=== PATIENT | female | born 1980 | race African-American/Black ===

== ENCOUNTER 2021-02-04 21:36 | Emergency (ER) | payer MEDICAID, OTHER ==
[~2021-02-04] VITALS: Ht 162.6 cm; Wt 114.0 kg
[2021-02-04 21:54] VITALS: BP 144/81
[2021-02-04] MEDS ORDERED: IBUPROFEN 800MG TABLET PO ONE (22:15)
[2021-02-04] MEDS ORDERED: IBUP-2030 MT (22:47)
== END 2021-02-04 23:30 | disposition home or self-care (01) ==
LOC: ER 21:36
DX: M79.642 Pain in left hand (principal); R03.0 Elevated blood-pressure reading, without diagnosis of hypertension; J45.909 Unspecified asthma, uncomplicated
CPT/HCPCS: 73130; 81025; 99283

== ENCOUNTER 2021-08-09 19:15 | Emergency (ER) | payer OTHER ==
[~2021-08-09] VITALS: Ht 162.6 cm; Wt 135.1 kg
[~2021-08-09 19:15] MED LIST: IBUP-2030 MT
[2021-08-09] MEDS ORDERED: ALBU6.7H9 INH (23:15)
[2021-08-09 23:44] VITALS: BP 145/80
== END 2021-08-09 23:46 | disposition home or self-care (01) ==
LOC: ER 19:15
DX: M79.605 Pain in left leg (principal); Z76.0 Encounter for issue of repeat prescription; J45.909 Unspecified asthma, uncomplicated
CPT/HCPCS: 93971; 99284

== ENCOUNTER 2021-11-29 15:07 | Emergency (ER) | payer OTHER ==
[~2021-11-29] VITALS: Ht 162.6 cm; Wt 136.0 kg
[~2021-11-29 15:07] MED LIST changes: +ALBU6.7H9 INH
[2021-11-29] MEDS ORDERED: ALBU6.7H9 INH (16:49)
[2021-11-29 17:02] VITALS: BP 150/90
== END 2021-11-29 17:03 | disposition home or self-care (01) ==
LOC: ER 15:36
DX: B34.9 Viral infection, unspecified (principal); I10 Essential (primary) hypertension
CPT/HCPCS: 99283

== ENCOUNTER 2022-01-06 11:31 | Emergency (ER) | payer MEDICAID, OTHER ==
[~2022-01-06] VITALS: Ht 162.6 cm; Wt 136.5 kg
[2022-01-06 11:37] VITALS: BP 143/83
[2022-01-06] MEDS ORDERED: IPRATROPIUM BROMIDE (0.02%) 0.5MG/2.5ML NEB HHN ONE (14:45)
[2022-01-06] MEDS ORDERED: ALBUTEROL (0.083%) 2.5MG/3ML NEB HHN ONE (14:45)
[2022-01-06] MEDS ORDERED: ALBU6.7H9 INH (16:00)
[2022-01-06] MEDS ORDERED: MONT10TA21 MT (16:00)
== END 2022-01-06 16:10 | disposition home or self-care (01) ==
LOC: ER 11:31
DX: J45.901 Unspecified asthma with (acute) exacerbation (principal); R03.0 Elevated blood-pressure reading, without diagnosis of hypertension
CPT/HCPCS: 94640; 99283; Z7610

== ENCOUNTER 2022-02-21 12:24 | Emergency (ER) | payer MEDICAID ==
[~2022-02-21] VITALS: Ht 162.6 cm; Wt 136.5 kg
[~2022-02-21 12:24] MED LIST changes: +ALBU6.7H3 INH; -ALBU6.7H9 INH; +MONT10TA21 MT
[2022-02-21 12:54] VITALS: BP 152/99
[2022-02-21] MEDS ORDERED: PREDNISONE 20MG TABLET PO STA (14:28)
[2022-02-21] MEDS ORDERED: IPRATROPIUM BROMIDE (0.02%) 0.5MG/2.5ML NEB HHN STA (14:28)
[2022-02-21] MEDS ORDERED: ALBUTEROL (0.083%) 2.5MG/3ML NEB HHN STA (14:28)
[2022-02-21] MEDS ORDERED: P20 MT (16:00)
[2022-02-21] MEDS ORDERED: ALBU6.7H3 INH (16:00)
== END 2022-02-21 16:29 | disposition home or self-care (01) ==
LOC: ER 12:24
DX: J45.901 Unspecified asthma with (acute) exacerbation (principal); I10 Essential (primary) hypertension
CPT/HCPCS: 71045; 94640; 99283; J7512; Z7610

== ENCOUNTER 2022-03-30 06:24 | Emergency (ER) | payer MEDICAID ==
[~2022-03-30] VITALS: Ht 162.6 cm; Wt 136.0 kg
[~2022-03-30 06:24] MED LIST changes: +P20 MT
[2022-03-30] MEDS ORDERED: PREDNISONE 20MG TABLET PO STA (06:54)
[2022-03-30] MEDS ORDERED: IPRATROPIUM BROMIDE (0.02%) 0.5MG/2.5ML NEB HHN STA (06:54)
[2022-03-30] MEDS ORDERED: ALBUTEROL (0.083%) 2.5MG/3ML NEB HHN STA (06:54)
[2022-03-30] MEDS ORDERED: ALBU6.7H3 INH (08:11)
[2022-03-30] MEDS ORDERED: P50 PO (08:11)
[2022-03-30 08:33] VITALS: BP 150/90
== END 2022-03-30 09:10 | disposition home or self-care (01) ==
LOC: ER 06:24
DX: J45.901 Unspecified asthma with (acute) exacerbation (principal); I10 Essential (primary) hypertension; Z79.899 Other long term (current) drug therapy; Z79.51 Long term (current) use of inhaled steroids
CPT/HCPCS: 94640; 99283; J7512; Z7610

== ENCOUNTER 2022-08-05 19:26 | Emergency (ER) | payer MEDICAID, OTHER ==
[~2022-08-05] VITALS: Ht 162.6 cm; Wt 136.0 kg
[~2022-08-05 19:26] MED LIST changes: +MONT-46 MT; -MONT10TA21 MT; +P50 PO
[2022-08-05] MEDS ORDERED: IBUP-2028 MT (23:49)
[2022-08-05] MEDS ORDERED: HYDR-4001 MT (23:49)
[2022-08-06] MEDS ORDERED: HYDROCODONE/ACETAMINOPHEN 5/325MG TABLET PO NR
[2022-08-06 00:23] VITALS: BP 133/91
== END 2022-08-06 00:59 | disposition home or self-care (01) ==
LOC: ER 19:26
DX: S92.352A Displaced fracture of fifth metatarsal bone, left foot, initial encounter for closed fracture (principal); S93.402A Sprain of unspecified ligament of left ankle, initial encounter; X58.XXXA Exposure to other specified factors, initial encounter; Y93.89 Activity, other specified; Y92.89 Other specified places as the place of occurrence of the external cause; Y99.8 Other external cause status; J45.909 Unspecified asthma, uncomplicated; Z79.899 Other long term (current) drug therapy
CPT/HCPCS: 29515; 73610; 73630; 99284; Z7610